=== PATIENT | male | born 1970 | race Caucasian/White ===

== ENCOUNTER 2020-09-14 12:04 | Outpatient (REF) | payer OTHER, SELFPAY ==
[2020-09-14 13:25] LABS: C Reactive Protein 0.12 mg/dL (< or = 0.50); Rheumatoid Factor < 15.0 IU/mL (<15.0)
[2020-09-14 14:08] LABS: Erythrocyte Sedimentation Rate 8 MM/HR (0-15)
[2020-09-15 19:22] LABS: Anti Nuclear Antibody Screen NEGATIVE (NEGATIVE)
== END 2020-09-14 12:05 | disposition home or self-care (01) ==
LOC: HO.MANLDS 12:04
PROVIDERS: PCP Internal Medicine; Visit Provider Physician Assistant
DX: R21 Rash and other nonspecific skin eruption (principal)
CPT/HCPCS: 36415; 85652; 86038; 86039; 86140; 86431

== ENCOUNTER 2021-01-24 06:00 | Outpatient (REF) | payer OTHER, SELFPAY ==
[2021-01-24 08:06] LABS: Estimated Average Glucose 108 mg/dL; Hemoglobin A1c % 5.4 %
[2021-01-24 08:11] LABS: Alanine Aminotransferase 24 U/L (0-40); Albumin Level 4.6 g/dL (3.5-5.0); Alkaline Phosphatase 67 U/L (39-117); Anion Gap 14 (12-20); Aspartate Amino Transferase 27 U/L (5-37); Bilirubin Total 1.1 mg/dL (0.0-1.0); Blood Urea Nitrogen 20 mg/dL (9-16); Calcium 9.5 mg/dL (8.4-10.2); Carbon Dioxide 25 mmol/L (22-29); Chloride 102 mmol/L (96-108); Cholesterol 279 mg/dL; Estimated Glomerular Filt Rate > 60; Glucose Random 97 mg/dL (60-115); HDL Cholesterol 77 mg/dL; LDL Cholesterol Calculated 178 mg/dl; Potassium 4.7 mmol/L (3.3-5.1); Sodium 136 mmol/L (135-145); Total Protein 7.6 g/dL (6.5-8.0); Triglycerides 124 mg/dL
== END 2021-01-24 06:01 | disposition home or self-care (01) ==
LOC: HO.LAB 06:00
PROVIDERS: PCP Internal Medicine; Visit Provider Internal Medicine
DX: E87.5 Hyperkalemia (principal); R73.01 Impaired fasting glucose
CPT/HCPCS: 36415; 80053; 80061; 83036

== ENCOUNTER 2021-03-01 14:48 | Outpatient (REF) | payer OTHER, SELFPAY ==
--- NOTE | ~2021-03-01 | MM_ITS ---
EXAMINATION: BONE DENSITOMETRY CLINICAL INDICATION: Disorders of bone density and structure. COMPARISON: This is the patient's baseline examination. TECHNIQUE: Using a Gigabit Squared DXA System (software version: 13.1) manufactured by [employer], dual-energy x-ray absorptiometry was performed of the lumbar spine and left hip. The images are of good technical quality. Summary results are attached. FINDINGS: AP SPINE L1-L4 (excluding L3): The data of L1-L4 has been changed to exclude the L3 vertebral body, because degenerative changes at this level may cause overestimation of lumbar spine density. BMD 1.084 g/cm2, Z-score -1.2, T-score -1.1, osteopenia. LEFT FEMUR, NECK: BMD 1.034 g/cm2, Z-score 0.1, T-score -0.3, normal. LEFT FEMUR, TOTAL: BMD 1.078 g/cm2, Z-score 0.0, T-score -0.2, normal. IDENTIFIED RISK FACTORS: History of fracture (adult). HISTORY OF FRACTURE: Ribs. MEDICATIONS: None listed. MM/XR DEXA axial skeleton IMPRESSION: 1. DIAGNOSIS: Osteopenia based on the lowest T-score value of -1.1 in the lumbar spine applying World Health Organization criteria. 2. 10-YEAR FRACTURE RISK PREDICTION, FRAX: Major osteoporotic fracture (clinical spine, forearm, hip or shoulder) 6.5%. Hip fracture 0.2%. 3. Treatment Recommendations: NOF guidelines recommend consideration for treatment in postmenopausal women and men age 50 and older presenting with the following: -A hip or vertebral (clinical or morphometric) fracture. -T-score less than or equal to -2.5 at the femoral neck or spine after appropriate evaluation to exclude secondary causes. -Low bone mass at the hip or spine and a 10-year fracture probability by FRAX of greater than or equal to 3% for hip fracture or greater than or equal to 20% for major osteoporotic fracture based on the [place] adapted WHO algorithm. 4. Other Recommendations: All treatment decisions require clinical judgment and consideration of individual patient factors, including patient preferences, comorbidities, previous drug use, risk factors not captured in the FRAX model (e.g. frailty, falls, vitamin D deficiency, increased bone turnover, interval significant decline in bone density) and possible under or overestimation of fracture risk by FRAX. Additional medical evaluation for secondary cause of low bone mineral density may be appropriate. FUTURE SCAN RECOMMENDATION: People with diagnosed cases of osteoporosis or at high risk for fracture should have regular bone mineral density tests. For patients eligible for Medicare, routine testing is allowed once every 2 years. The testing frequency can be increased to one year for patients who have rapidly progressing disease, those who are receiving or discontinuing medical therapy to restore bone mass, or have additional risk factors.
== END 2021-03-01 14:49 | disposition home or self-care (01) ==
LOC: HO.MAMMO 14:48
PROVIDERS: PCP Internal Medicine; Visit Provider Internal Medicine
DX: Z13.820 Encounter for screening for osteoporosis (principal); M85.80 Other specified disorders of bone density and structure, unspecified site
CPT/HCPCS: 77080

== ENCOUNTER 2025-06-13 10:17 | Outpatient (REF) | payer OTHER, SELFPAY ==
--- OUTSIDE RECORDS SUMMARY | 2020-03-06 07:22 | XMS_ITS | Encounter Summary ---
Author Organization [facility] Address [address] [place] [address] Phone Care Team Providers Care Dining Room Coordinator Name Role Phone Alberto Alford DO Primary Care Provider [phone] Encounter Details Date Type Department Care Team (Late st Contact Info) Description 03/06/2020 8:22 AM EDT Hospital Encounter [facility] [address] [place] [address] Seema Franklin CNP [address] [place] [address] Social History Tobacco Use Types Packs/Day Years Used Date Smoking Tobacco: Former Cigarettes 1989 Smokeless Tobacco: Never Comments:few cigs socially Alcohol Use Standard Drinks/Week Comments Not Currently 14 (1 standard drink = 0.6 oz pu re alcohol) 2 per day Education Answer Date Recorded Are you interested in more education? Not on elida e 10/24/2022 Are you concerned about learning? Not on file 10/24/2022 No 10/24/2022 No 10/24/2022 Digital Access Answer Date Recorded No 11/22/2022 No 11/22/2022 Reliable internet access at home? Not on file 11/22/2022 Device with a working camera? Not on file Intimate Partner Violence Answer Date R ecorded Denied Basic Needs Not on file 01/16/2023 In the past 12 months have y ou been in a relationship with a person who hurts, threatens, or tries to control you? No 01/16/2023 Worried food would run out Not on file 01/16 In the past 12 months have y ou been in a relationship with a person who hurts, threatens, or tries to control you? No 01/16/2023 Sex and Gender Information Value Date Recorded Sex Assigned at Male 03/24/2021 2:56 AM EDT Legal Sex Male 9:37 PM EDT Gender Identity Male 03/24/2021 2:56 AM EDT Sexual Orientation Not on file documented as of this encounter Functional Status * Calculated C-SSRS Risk Score (Lifetime/Recent) Answer Date of Assessment Author No Risk Indicated 03/24/2021 2:56 AM EDT Sera Hamm RN * [place] Suicide Severity Rating Scale (Screener/Recent Self-Report) Question Answer Date of Assessment Author 1. Wish to be (Past 1 Month) No 03/24/2021 2:56 AM EDT Sera Hamm RN 2. Non-Specific Active Suicidal Thoughts (Past 1 Month) No 03/24/2021 2:56 AM EDT Sera Hamm RN 6. Suicidal Behavior (Lifetime) No 03/24/2021 2:56 AM EDT Sera Hamm RN documented as of this encounter Plan of Treatment Upcoming Encounters Date Type Department Care Team (Late st Contact Info) Description 10/16/2025 1:00 PM EDT Office Visit [facility] [address] [place] [address] 3rd Floor, [address] [place] [address] Ever Coffey MD [address] [place] [address] [email or web address] documented as of this encounter Procedures Procedure Name Priority Date/Time Associated Diagnosis Comments XR RIBS 2 VIEWS (RIGHT) Urgent/patient waiting 03/06/2020 8:28 AM EDT Fall on board fishing boat, initial encounter documented in this encounter Results * XR RIBS 2 VIEWS (RIGHT) (03/06/2020 8:28 AM EDT) Anatomical Region Laterality Modality Chest Radiographic Kacie ging 03/06/2020 8:35 AM EDT Impressions 03/06/2020 8:39 AM EDT No rib fractures visualized. POS - [id number] Narrative 03/06/2020 8:39 AM EDT HISTORY: Lower anterior rib pain after fall. COMPARISON: None. VIEWS: 4 views. FINDINGS: No fractures visualized. No evidence of suspicious lytic or blastic lesions within the bones. Procedure Note Addi Archuleta MD - 03/06/2020 HISTORY: Lower anterior rib pain after fall. COMPARISON: None. VIEWS: 4 views. FINDINGS: No fractures visualized. No evidence of suspicious lytic or blasticlesions within the bones. IMPRESSION: No rib fractures visualized. POS - [id number] us Seema Franklin BANDER AND CELLOPHANER MACHINE HELPER IMG XR CHEST Final Resul t documented in this encounter Visit Diagnoses Not on filedocumented in this encounter Additional Health Concerns Infection Onset Date Last Indicated Resolved Time CoV-Risk 02/19/2021 02/19/2021 03/01/2021 1:22 AM EDT CoV-Risk Comment:Per note documentation 03/24/2021 03/24/2021 8:05 AM EDT documented as of this encounter Care Teams Dining Room Coordinator Relationship Specialty Start Date End Date Alberto Alford DO [email or web address] PCP - General Internal Medicine 03/06/20 02/02/25 documented as of this encounter Additional Source Comments The information contained in this document represents components of the legal health record. It is not the complete legal health record.[facility]
--- OUTSIDE RECORDS SUMMARY | 2020-12-31 07:21 | XMS_ITS | Encounter Summary ---
Author Organization [facility] Address [address] [place] [address] Drive [address] [place] [address] Phone Care Team Providers Care Saturator Operator Name Role Phone Alberto Alford Primary Care Provider [phone] Encounter Details Date Type Department Care Team (Late st Contact Info) Description 12/31/2020 8:21 AM EDT Hospital Encounter [facility] [address] [place] [address] Candice Field FNP [address] [place] [address] [email or web address] Social History Tobacco Use Types Packs/Day Years [...] 2:56 AM EDT Sera Hamm RN * [place] Suicide Severity Rating Scale (Screener/Recent Self-Report) Question [...] Description 10/16/2025 1:00 PM EDT Office Visit [facility] [address] [place] [address], [address] [place] [address] Ever Coffey MD [address] [place] [address] [email or web address] documented as of this encounter Procedures Procedure Name Priority Date/Time Associated Diagnosis Comments XR LUMBOSACRAL SPINE 2-3 VIEWS Urgent/patient waiting 12/31/2020 8:26 AM EDT Fall, initial encounter documented in this encounter Results * XR LUMBOSACRAL SPINE 2-3 VIEWS (12/31/2020 8:26 AM EDT) Anatomical Region Laterality Modality L-spine Computed Radiogr aphy 12/31/2020 8:34 AM EDT Impressions 12/31/2020 8:38 AM EDT Osteopenia. No acute fracture or misalignment. Narrative 12/31/2020 8:38 AM EDT XR LUMBOSACRAL SPINE 2-3 VIEWS COMPARISON: None FINDINGS: Diffuse bony osteopenia. Normal alignment. Minimal endplate spurring at L3-L5. No acute fracture. Vertebral body heights appear intact apart from perhaps minimal chronic appearing superior endplate compression at L2 and L3. Imaged regions of the pelvis and sacrum are unremarkable. Imaged bowel gas pattern is normal. Imaged lung bases are clear. Procedure Note Octavio Muñoz MD, MPH - 12/31/2020 XR LUMBOSACRAL SPINE 2-3 VIEWS COMPARISON: None FINDINGS: Diffuse bony osteopenia. Normal alignment. Minimal endplate spurring atL3-L5. No acute fracture. Vertebral body heights appear intact apart fromperhaps minimal chronic appearing superior endplate compression at L2 andL3. Imaged regions of the pelvis and sacrum are unremarkable. Imaged bowelgas pattern is normal. Imaged lung bases are clear. IMPRESSION: Osteopenia. No acute fracture or misalignment. Candice Field LACQUER POLISHER IMG XR SPINE Final Resul t documented in this encounter Visit Diagnoses Not on filedocumented in this encounter Additional Health Concerns Infection Onset Date Last Indicated Resolved Time CoV-Risk 02/19/2021 02/19/2021 03/01/2021 1:22 AM EDT CoV-Risk Comment:Per note documentation 03/24/2021 03/24/2021 8:05 AM EDT documented as of this encounter Care Teams Saturator Operator Relationship Specialty Start Date End Date Alberto Alford DO [email or web address] PCP - General Internal Medicine 9/8/20 8/7/25 documented as of this encounter Additional Source Comments The information contained in this document represents components of the legal health record. It is not the complete legal health record.[facility]
--- OUTSIDE RECORDS SUMMARY | 2025-02-03 08:10 | XMS_ITS | Encounter Summary ---
Author Organization [facility] Address [address] [place] [address] Drive [address] [place] [address] Phone Care Team Providers Care Residential Real Estate Sales Manager Name Role Phone Alberto Alford Primary Care Provider [phone] Encounter Details Date Type Department Care Team (Late st Contact Info) Description 02/03/2025 9:10 AM EDT Hospital Encounter [facility] [address] [place] [address] Seema Franklin CNP [address] [place] [address] [email or web address] Social History Tobacco Use Types Packs/Day Years [...] on file documented as of this encounter Plan of Treatment Upcoming Encounters Date Type Department Care Team (Late st Contact Info) Description 10/16/2025 1:00 PM EDT Office Visit [facility] [address] [place] [address] 3rd Floor, [address] [place], [place] [phone] Ever Coffey MD [address] [place] [address], [address] [place] [address] [email or web address] documented as of this encounter Procedures Procedure Name Priority Date/Time Associated Diagnosis Comments XR ANKLE 3 OR MORE VIEWS (LEFT) Urgent/patient waiting 02/03/2025 9:23 AM EDT Acute left ankle pain documented in this encounter Results * XR ANKLE 3 OR MORE VIEWS (LEFT) (02/03/2025 9:23 AM EDT) Anatomical Region Laterality Modality Ankle Left Computed Radiogr aphy 02/03/2025 9:39 AM EDT Impressions 02/03/2025 9:39 AM EDT No fracture or dislocation. Narrative 02/03/2025 9:39 AM EDT XR FOOT 3 OR MORE VIEWS (LEFT), XR ANKLE 3 OR MORE VIEWS (LEFT) Referring clinician's provided indication for this examination in Epic: Pain; History of plantars fasciitis with swelling at the heel and medial ankle COMPARISON: None. FINDINGS: Foot and ankle: No fracture. Normal alignment. Symmetric ankle mortise. Inferior calcaneal spur. Normal joint spaces. No soft tissue swelling or ankle effusion. Achilles tendon enthesophyte. Procedure Note Antonina Soto MD - 02/03/2025 XR FOOT 3 OR MORE VIEWS (LEFT), XR ANKLE 3 OR MORE VIEWS (LEFT) Referring clinician's provided indication for this examination in Epic:Pain; History of plantars fasciitis with swelling at the heel and medialankle COMPARISON: None. FINDINGS: Foot and ankle: No fracture. Normal alignment. Symmetric ankle mortise.Inferior calcaneal spur. Normal joint spaces. No soft tissue swelling orankle effusion. Achilles tendon enthesophyte. IMPRESSION: No fracture or dislocation. Seema Franklin [employer]GERS AND ACQUISITIONS ASSOCIATE IMG XR LOWER EXTREMITY Arely l Result documented in this encounter Visit Diagnoses Not on filedocumented in this encounter Care Teams Residential Real Estate Sales Manager Relationship Specialty Start Date End Date Alberto Alford DO [address] [place] [address] PCP - General Internal Medicine 02/03/25 documented as of this encounter Additional Source Comments The information contained in this document represents components of the legal health record. It is not the complete legal health record.[facility]
--- OUTSIDE RECORDS SUMMARY | 2025-02-03 08:12 | XMS_ITS | Encounter Summary ---
Author Organization [facility] Address [address] [place] [address] Drive [address] [place] [address] Phone Care Team Providers Care Resource Center Teacher Name Role Phone Alberto Alford Primary Care Provider Encounter Details Date Type Department Care Team (Late st Contact Info) Description 02/03/2025 9:12 AM EDT Hospital Encounter [facility] [address] [place] [address] Seema Franklin CNP [address] [place] [address] [email or web address] Social History Tobacco Use Types Packs/Day Years [...] Description 10/16/2025 1:00 PM EDT Office Visit [facility] [address] [place] [address] 3rd Floor, [address] [place], [place] [phone] Ever Coffey MD [address] [place] [address], [address] [place] [address] [email or web address] documented as of this encounter Procedures Procedure Name Priority Date/Time Associated Diagnosis Comments XR FOOT 3 OR MORE VIEWS (LEFT) Urgent/patient waiting 02/03/2025 9:23 AM EDT Acute left ankle pain documented in this encounter Results * XR FOOT 3 OR MORE VIEWS (LEFT) (02/03/2025 9:23 AM EDT) Anatomical Region Laterality Modality Foot Left Computed Radiogr aphy 02/03/2025 9:39 AM [...] IMPRESSION: No fracture or dislocation. Seema Franklin TURNTABLE OPERATOR IMG XR LOWER EXTREMITY Arely l Result documented in this encounter Visit Diagnoses Not on filedocumented in this encounter Care Teams Resource Center Teacher Relationship Specialty Start Date End Date Alberto Alford DO [address] [place] [address] PCP - General Internal Medicine 02/03/25 documented as of this encounter Additional Source Comments The information contained in this document represents components of the legal health record. It is not the complete legal health record.[facility]
--- OUTSIDE RECORDS SUMMARY | 2025-06-13 12:50 | XMS_ITS | Encounter Summary ---
Author Organization [facility] Address [address] [place] [address] Phone Care Team Providers Care Video Game Tester Name Role Phone Alberto Alford DO Primary Care Provider [phone] Alberto Alford DO Primary Care Provider [phone] Encounter Details Date Type Department Care Team (Late st Contact Info) Description 03/24/2021 Procedure [facility] [address] [place] [address] Social History Tobacco Use Types Packs/Day Years Used Date Smoking Tobacco: Former Smokeless Tobacco: Never Alcohol Use Standard Drinks/Week Comments Yes 0 (1 standard drink = 0.6 oz pur e alcohol) Sex and Gender Information Value Date Recorded Sex Assigned at Male 03/24/2021 2:56 AM EDT Legal Sex Male 9:37 PM EDT Gender Identity Male 03/24/2021 2:56 AM EDT Sexual Orientation Not on file documented as of this encounter Functional Status * Calculated C-SSRS Risk Score (Lifetime/Recent) Answer Date of Assessment Author No Risk Indicated 03/24/2021 2:56 AM EDT Sera Hamm RN * [place] Suicide Severity Rating Scale (Screener/Recent Self-Report) Question Answer Date of Assessment Author 1. Wish to be (Past 1 Month) No 03/24/2021 2:56 AM EDT Sera Hamm, CONSTANTIN 2. Non-Specific Active Suicidal Thoughts (Past 1 Month) No 03/24/2021 2:56 AM EDT Sera Hamm, CONSTANTIN 6. Suicidal Behavior (Lifetime) No 03/24/2021 2:56 AM EDT Sera Hamm RN documented as of this encounter Plan of Treatment Upcoming Encounters Date Type Department Care Team (Late st Contact Info) Description 10/16/2025 1:00 PM EDT Office Visit [facility] [address] [place] [address] 3rd Floor, [address] [place] [address] Ever Coffey MD [address] [facility] [address] [place] [address] [email or web address] documented as of this encounter Visit Diagnoses Not on filedocumented in this encounter Additional Health Concerns Infection Onset Date Last Indicated Resolved Time CoV-Risk Comment:Per note documentation 03/24/2021 03/24/2021 8:05 AM EDT documented as of this encounter Care Teams Video Game Tester Relationship Specialty Start Date End Date Alberto Alford DO PCP - General Internal Medicine 03/06/20 02/02/25 Alberto Alford DO [address] [facility] [place] [address] [place] [address] PCP - General Internal Medicine 02/03/25 documented as of this encounter Additional Source Comments The information contained in this document represents components of the legal health record. It is not the complete legal health record.[facility]
--- OUTSIDE RECORDS SUMMARY | 2025-06-13 12:50 | XMS_ITS | Encounter Summary ---
Author Organization [facility] Address [address] [facility] [address] [place] [address] Phone Care Team Providers Care Client Administrator Name Role Phone Rickeyyony Alberto Javed DO Primary Care Provider [phone] Alberto Alford DO Primary Care Provider [phone] Encounter Details Date Type Department Care Team (Late st Contact Info) Description 03/19/2021 Ancillary Orders Virtual Department [address] [place] [address] Alberto Alford DO [address] [facility] [place] [address] [place] [address] [email or web address] Pneumonitis; Pneumonia due to infectious organism, unspecified laterality, unspecified part of lung Social History Tobacco Use Types Packs/Day Years [...] Description 10/16/2025 1:00 PM EDT Office Visit [facility] [address] [place] [address] 3rd Floor, [address] [place] [address] Ever Coffey MD [address] [facility], [address] [place] [phone] ([email or web address]) [email or web address] documented as of this encounter Results * XR CHEST PA AND LATERAL 2 VIEWS (03/19/2021 1:03 PM EDT) Anatomical Region Laterality Modality Chest Computed Radiogr aphy 03/19/2021 1:10 PM EDT Impressions 03/19/2021 1:37 PM EDT 1. Evidence of chronic lung disease. 2. Cardiopericardial silhouette is borderline in size, suggestion of mild PVH. 3. Possible perihilar lung nodules that may be further evaluated by CT imaging. Findings were discussed with Dr. Alford on 03/19/21 at 1:40 pm; Narrative 03/19/2021 1:37 PM EDT XR CHEST PA AND LATERAL 2 VIEWS COMPARISON: None FINDINGS: Devices/Tubes/Lines: None. Lungs: The lungs are hyperexpanded with features of pulmonary emphysema. In left and right perihilar location, there is concern for lung nodules and this area may be further evaluated by CT imaging. Evaluation is somewhat limited in the absence of prior films. There is evidence of parenchymal scarring as well as mild PVH with findings suggesting presence of Sivakumar B-lines. The cardiopericardial silhouette is borderline in size. There is mild kyphosis of the upper thoracic spine. Procedure Note Malachi Rothman MD - 03/19/2021 XR CHEST PA AND LATERAL 2 VIEWS COMPARISON: None FINDINGS: Devices/Tubes/Lines: None. Lungs: The lungs are hyperexpanded with features of pulmonary emphysema.In left and right perihilar location, there is concern for lung nodulesand this area may be further evaluated by CT imaging. Evaluation issomewhat limited in the absence of prior films. There is evidence ofparenchymal scarring as well as mild PVH with findings suggesting presenceof Sivakumar B-lines. The cardiopericardial silhouette is borderline in size.There is mild kyphosis of the upper thoracic spine. IMPRESSION: 1. Evidence of chronic lung disease. 2. Cardiopericardial silhouette is borderline in size, suggestion of mildPVH. 3. Possible perihilar lung nodules that may be further evaluated by CTimaging. Findings were discussed with Dr. Alford on 03/19/21 at 1:40 pm; us Alberto Alford DO IMG XR CHEST Final Result documented in this encounter Visit Diagnoses Diagnosis Pneumonitis Pneumonia, organism unspecified Pneumonia due to infectious organism, unspecified laterality, unspecified part of lung Pneumonitis Pneumonia, organism unspecified Pneumonia due to infectious organism, unspecified laterality, unspecified part of lung documented in this encounter Additional Health Concerns Infection Onset Date Last Indicated Resolved Time CoV-Risk Comment:Per note documentation 03/24/2021 03/24/2021 8:05 AM EDT documented as of this encounter Care Teams Client Administrator Relationship Specialty Start Date End Date Albreto Alford DO PCP - General Internal Medicine 03/06/20 02/02/25 Alberto Alford DO [address] [place] [address] PCP - General Internal Medicine 02/03/25 documented as of this encounter Additional Source Comments The information contained in this document represents components of the legal health record. It is not the complete legal health record.[facility]
--- OUTSIDE RECORDS SUMMARY | 2025-06-13 12:50 | XMS_ITS | Encounter Summary ---
Author Organization [facility] Address [address] [facility] [address] [place] [address] Phone Care Team Providers Care Carpet Loom Fixer Name Role Phone Alberto Alford DO Primary Care Provider [phone] Alberto Alford DO Primary Care Provider [phone] Reason for Referral * Consultation (Elective) - Closed Specialty Diagnoses / Procedures Referred By Conteliseo t Referred To Contact Pulmonary Disease Diagnoses Edema, unspecified type Multiple nodules of lung Alberto Alford DO Phone: tel: fax: [email or web address] [address] [address] Phone: tel: Referral ID Status Reason Start Date Expiration Date Visits Re quested Visits Authorized [id number] Closed 03/20/2021 03/20/2022 1 1 Encounter Details Date Type Department Care Team (Latest Contact Info) Description 03/20/2021 Transcribe Orders [facility] [address] [place] [address] [address]rd Floor, [address] [place] [address] Dejon Ragland MD [address] [facility], [address] [place] [address] [email or web address] Multiple nodules of lung (Primary Dx); Edema, unspecified type Social History Tobacco Use Types Packs/Day Years [...] Description 10/16/2025 1:00 PM EDT Office Visit [facility] [address] [place] [address] [address]rd Floor, [address] [place] [address] Ever Coffey MD [address] [facility], [address] [place] [address] [email or web address] Scheduled Referrals Name Type Priority Associated Diagnoses Orde r Schedule Ambulatory referral to [facility] Pulmonology Outpatient Referral Routine Edema, unspecified type Multiple nodules of lung Ordered: 03/20/2021 documented as of this encounter Visit Diagnoses Diagnosis Multiple nodules of lung- Primary Edema, unspecified type documented in this encounter Additional Health Concerns Infection Onset Date Last Indicated Resolved Time CoV-Risk Comment:Per note documentation 03/24/2021 03/24/2021 8:05 AM EDT documented as of this encounter Care Teams Carpet Loom Fixer Relationship Specialty Start Date End Date Alberto Alford DO PCP - General Internal Medicine 03/06/20 02/02/25 Alberto Alford DO [address] [facility] [place] [address] [place] [address] PCP - General Internal Medicine 02/03/25 documented as of this encounter Additional Source Comments The information contained in this document represents components of the legal health record. It is not the complete legal health record.[facility]
--- OUTSIDE RECORDS SUMMARY | 2025-06-13 12:50 | XMS_ITS | Encounter Summary ---
Author Organization [facility] Address [address] [facility] [address] [place] [address] Phone Care Team Providers Care Hvac Controls Technician Name Role Phone Rickeyyony Alberto Javed DO Primary Care Provider [phone] Alberto Alford DO Primary Care Provider [phone] Encounter Details Date Type Department Care Team (Late Contact Info) Description 03/19/2021 Transcribe Orders Virtual Department [address] [place] [address] Alberto Alford DO [address] [facility] [place] [address] [place] [address] [email or web address] Other nonspecific abnormal finding of lung field (Primary Dx); Chronic pulmonary edema Social History Tobacco Use Types Packs/Day Years [...] Encounters Date Type Department Care Team (Late Contact Info) Description 10/16/2025 1:00 PM EDT Office Visit [facility] [address] [place] [address] [address]rd Floor, [address] [place] [address] Ever Coffey MD [address] [facility], [address] [place], [place] [id number] [email or web address] documented as of this encounter Visit Diagnoses Diagnosis Other nonspecific abnormal finding of lung field- Primary Chronic pulmonary edema Pulmonary congestion and hypostasis documented in this encounter Additional Health Concerns Infection Onset Date Last Indicated Resolved Time CoV-Risk Comment:Per note documentation 03/24/2021 03/24/2021 8:05 AM EDT documented as of this encounter Care Teams Hvac Controls Technician Relationship Specialty Start Date End Date Alberto Alford DO [email or web address] PCP - General Internal Medicine 03/06/20 02/02/25 Alberto Alford DO [address] [place] [address] PCP - General Internal Medicine 02/03/25 documented as of this encounter Additional Source Comments The information contained in this document represents components of the legal health record. It is not the complete legal health record.[facility]
--- OUTSIDE RECORDS SUMMARY | 2025-06-13 12:50 | XMS_ITS | Encounter Summary ---
Author Organization [facility] Address [address] [place] [address] Phone Care Team Providers Care Master Electrician Name Role Phone Alberto Alford DO Primary Care Provider [phone] RickeyAlberto [email or web address] DO Primary Care Provider [phone] Encounter Details Date Type Department Care Team (Late st Contact Info) Description 03/24/2021 Procedure Pass [facility], Ct Scan - [address] [address] Social History Tobacco Use Types Packs/Day Years [...] 2:56 AM EDT Sera Hamm RN * [place] Suicide Severity Rating Scale (Screener/Recent Self-Report) Question [...] Description 10/16/2025 1:00 PM EDT Office Visit [facility] [address] [place] [address] [address]rd Floor, [address] [place] [address] Ever Coffey MD [address] [facility], [address] [place] [address] [email or web address] documented as of this encounter Visit Diagnoses Not on filedocumented in this encounter Additional Health Concerns Infection Onset Date Last Indicated Resolved Time CoV-Risk Comment:Per note documentation 03/24/2021 03/24/2021 8:05 AM EDT documented as of this encounter Care Teams Master Electrician Relationship Specialty Start Date End Date Alberto Alford DO [email or web address] PCP - General Internal Medicine 03/06/20 02/02/25 Alberto Alford DO [address] [employer] [place] [address] PCP - General Internal Medicine 02/03/25 documented as of this encounter Additional Source Comments The information contained in this document represents components of the legal health record. It is not the complete legal health record.[facility]
--- OUTSIDE RECORDS SUMMARY | 2025-06-13 12:50 | XMS_ITS | Encounter Summary ---
Author Organization [facility] Address [address] [facility] [address] [place] [address] Phone Care Team Providers Care Animal Geneticist Name Role Phone RickeyAlberto [email or web address] Primary Care Provider [phone] Prashanth Alberto Javed DO Primary Care Provider [phone] Encounter Details Date Type Department Care Team (Late Contact Info) Description 03/19/2021 Transcribe Orders Virtual Department [address] [place] [address] Alberto Alford DO [address] [facility] [place] [address] [email or web address] Pneumonitis (Primary Dx) Social History Tobacco Use Types Packs/Day Years [...] Description 10/16/2025 1:00 PM EDT Office Visit [facility] [address] [place] [address] 3rd Floor, [address] [place] [address] Ever Coffey MD [address] [facility], [address] [place] [address] [email or web address] documented as of this encounter Visit Diagnoses Diagnosis Pneumonitis- Primary Pneumonia, organism unspecified documented in this encounter Additional Health Concerns Infection Onset Date Last Indicated Resolved Time CoV-Risk Comment:Per note documentation 03/24/2021 03/24/2021 8:05 AM EDT documented as of this encounter Care Teams Animal Geneticist Relationship Specialty Start Date End Date Alberto Alford DO [email or web address] PCP - General Internal Medicine 03/06/20 02/02/25 Alberto Alford DO [address] [place] [address] PCP - General Internal Medicine 02/03/25 documented as of this encounter Additional Source Comments The information contained in this document represents components of the legal health record. It is not the complete legal health record.[facility]
--- OUTSIDE RECORDS SUMMARY | 2025-06-13 12:50 | XMS_ITS | Clinical Summary ---
Author Organization [facility] Address [address] [facility] [address] [place] [phone] Phone Care Team Providers Care Lead Oracle Developer Name Role Phone Kimo Polanco DO Primary Care Provider [phone] Allergies Active Allergy Reactions Criticality Noted Date Comments Methylprednisolone Acetate Unknown 5 Depo-Medrol Medications aspirin 81 MG EC tablet Take 1 tablet (81 mg total) by mouth daily. 90 tablet 5 3 Active EPINEPHrine 0.3 mg/0.3 mL auto-injector Inject 0.3 mL (0.3 mg total) into the muscle as needed for anaphylaxis. 1 each 1 4 Active levocetirizine (XYZAL) 5 MG tablet Take 5 mg by mouth every evening. Active albuterol 90 mcg/actuation inhaler Inhale 2 puffs into the lungs every 4 (four) hours. Active alendronate (FOSAMAX) 70 MG tablet Take 70 mg by mouth once a week. Active fluticasone propionate (FLONASE) 50 mcg/actuation nasal spray SPRAY 2 SPRAYS EVERY DAY BY INTRANASAL ROUTE FOR 30 DAYS Active metoprolol tartrate (LOPRESSOR) 50 MG tablet Take 1 tablet (50 mg total) by mouth 2 (two) times a day. 180 tablet 3 5 Active rosuvastatin (CRESTOR) 20 MG tablet TAKE 1 TABLET BY MOUTH EVERY DAY 90 tablet 3 5 Active Active Problems Problem Noted Date Diagnosed Date Benign essential hypertension 04/10/2025 Assessment & Plan (04/10/2025 3:04 PM EDT): Blood pressure very elevated in the office today 180s over 100, slightly improved on repeat to 160s over 90 but still significantly elevated. Patient states is under immense stress of recent with work related issues and when he checks at home/at work or at outside offices they are regularly 120/70. Asked patient to check his home numbers over the next 1 month and let me know if they are consistently over 130/80. Continue metoprolol 50 mg twice daily at this time. Uptitrate or add additional antihypertensives should be elevated in the future. Lifestyle measures ongoing. Labs up-to-date. Coronary atherosclerosis of cachil dehe coronary delilah ry 09/30/2023 Assessment & Plan (04/10/2025 2:59 PM EDT): He did have a cardiac catheterization which showed mild nonflow limiting coronary disease. Continue on baby aspirin. Continue to optimize cardiovascular risk factors. Hyperlipidemia and hypertension as documented. Patient denies any symptoms concerning for angina or heart failure. Follow-up in 6 months Assessment & Plan (10/03/2024 1:35 PM EDT): He did have a cardiac catheterization which showed mild nonflow limiting coronary disease. Continue on baby aspirin. Continue to optimize cardiovascular risk factors. Hyperlipidemia and hypertension as below. Patient denies any symptoms concerning for angina or heart failure. Follow-up in 6 months Assessment & Plan (09/30/2023 2:38 PM EDT): He did have a cardiac catheterization which showed mild nonflow limiting coronary disease. Continue on baby aspirin. Continue to optimize cardiovascular risk factors. Hyperlipidemia as below Other hyperlipidemia 09/30/2023 Assessment & Plan (04/10/2025 3:02 PM EDT): Goal LDL less than 100 for this patient. Recent labs show LDL now at goal at 87, previously 203, after initiation of rosuvastatin 20 mg daily which he is tolerating well. LFTs with new slight elevation in AST 44 in the setting of increased alcohol use. We discussed in detail these findings and he seems agreeable to cut back his alcohol use. He is having his LFTs repeated in 2 months through his PCP office. Plan pending results. Assessment & Plan (10/03/2024 1:41 PM EDT): Goal LDL less than 100 for this patient. Recent labs show LDL now at goal at 87, previously 203, after initiation of rosuvastatin 20 mg daily at his last visit which he is tolerating well. LFTs unremarkable. Continue same Assessment & Plan (09/30/2023 2:40 PM EDT): Labs 09/29/2023 Total cholesterol 299 LDL 184 HDL 95 Triglycerides 100 Discussed lipid panel and recommended statin initiation. Patient states he has not been ever on any cholesterol-lowering medications. LFTs were normal. Patient states he would like to work on lifestyle modifications. We discussed diet, increasing exercise, reducing alcohol intake. 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 Heart failure 05/02/2022 Paroxysmal atrial fibrillation 06/04/2021 Assessment & Plan (04/10/2025 2:58 PM EDT): He has remained in sinus rhythm without known recurrence of atrial fibrillation. Eliquis was previously discontinued. He is taking a baby aspirin. He is on metoprolol 50 twice daily. Continue to monitor. Assessment & Plan (10/03/2024 1:32 PM EDT): He has remained in sinus rhythm without known recurrence of atrial fibrillation. Eliquis was previously discontinued. He is taking a baby aspirin. He is on metoprolol 50 twice daily. Continue to monitor. Assessment & Plan (08/06/2022 3:52 PM EST): He has a history of paroxysmal atrial fibrillation. Today, he is in sinus rhythm. He will continue metoprolol and Eliquis. Follow-up in 6 months. Cardiomyopathy 04/02/2021 Assessment & Plan (04/10/2025 2:59 PM EDT): Thought either tachycardia induced versus alcoholic cardiomyopathy. EF on repeat echo did normalize. Entresto was previously stopped. He has continued on metoprolol 50 p.o. twice daily. there has seemed to be no clinical recurrence of atrial fibrillation, discussed today alcohol use which is a few drinks daily and has been even more over the summer due to stress. Discussed importance of cutting back, patient states awareness of this. He did have a cardiac catheterization which showed mild nonflow limiting coronary disease. Patient is asymptomatic from a cardiovascular standpoint at this time. Continue to monitor this condition. Assessment & Plan (10/03/2024 1:34 PM EDT): Thought either tachycardia induced versus alcoholic cardiomyopathy. EF on repeat echo did normalize. Entresto was previously stopped. He has continued on metoprolol 50 p.o. twice daily. there has seemed to be no clinical recurrence of atrial fibrillation, discussed today alcohol use which is a few drinks daily. He did have a cardiac catheterization which showed mild nonflow limiting coronary disease. Patient is asymptomatic from a cardiovascular standpoint at this time. Work on reducing alcohol intake although patient is contemplative. Continue to monitor this condition. Assessment & Plan (09/30/2023 5:30 PM EDT): Thought either tachycardia induced versus alcoholic cardiomyopathy. EF on repeat echo did normalize. Entresto was previously stopped. He has continued on metoprolol 50 p.o. twice daily. there has seemed to be no clinical recurrence of atrial fibrillation, discussed today alcohol use which patient endorses drinking 4-5 alcoholic beverages a night. Patient seems contemplative. Patient is asymptomatic from a cardiovascular standpoint at this time. Work on reducing alcohol intake. Continue to monitor this condition. Assessment & Plan (08/06/2022 3:53 PM EST): He has a history of a cardiomyopathy. He did have a catheterization which showed nonflow limiting coronary artery disease. His most recent echocardiogram done last month showed a normal EF. For now, he will continue with Entresto and metoprolol. Follow-up 6 months. Assessment & Plan (05/13/2021 9:13 AM EST): Euvolemic on exam today. Denies concerning cardiac symptoms indicative of fluid overload. Patient will continue furosemide and spironolactone at same doses. Reviewed heart healthy diet and ways to mitigate urinary frequency with diuretic. Assessment & Plan (04/02/2021 1:54 PM EDT): Patient EF noted to be 25% on recent echocardiogram at [facility] 03/24/2021. He was started on low-dose Entresto, metoprolol 100 mg twice daily, Lasix 40 mg daily and spironolactone 25 mg daily. I ordered him a repeat BMP/BNP for him to obtain on the way out today as well as another BMP/BNP for him to obtain prior to his next 1 month follow-up to ensure kidney function/electrolytes remain stable on all of these new medications. Patient is tolerating these medications. We will order a stress test, patient states he will attempt to walk on the treadmill, to ensure no ischemic component. He has been having nonspecific left-sided back discomfort with certain activities/positions. Other etiologies for his cardiomyopathy include alcohol versus tachycardia related to his atrial fibrillation. Patient is currently abstaining from alcohol. We will obtain an echocardiogram in 3 months to reevaluate his EF and optimize his medical therapy with monthly visits in the interim. I have asked him to start checking his vitals at home and keep a BP/pulse log for review at his next follow-up as we will attempt to uptitrate one of his medications at that time. Patient states that Entresto was expensive. I requested he call his insurance company to see if they require a PA for this medication so we can establish a plan as to how to keep him on this if financially able for the next few months. We may be increasing this to medium dose at next follow-up, so I provided him 1 month of samples. Patient also states that he has not been able to make it through the workday and is extremely fatigued even on light duty. He is going to speak with HR at his company and let us know if he needs any further work note to be off of work for 4 to 6 weeks until he is able to return. Atrial fibrillation with rapid ventricular respo nse 03/24/2021 Assessment & Plan (09/30/2023 2:30 PM EDT): He has remained in sinus rhythm without known recurrence of atrial fibrillation. Eliquis was previously discontinued. He is taking a baby aspirin. He is on metoprolol 50 twice daily. Continue to monitor. Assessment & Plan (05/13/2021 9:11 AM EST): Rate controlled in office today. Continue metoprolol and Eliquis. Assessment & Plan (04/02/2021 1:51 PM EDT): Patient was found to be in new A. fib with RVR during recent hospitalization at [facility]. He was started on Eliquis 5 mg twice daily which I will continue at this time. [id number] score is 1 for CHF. Continue rate control with metoprolol 100 mg twice daily. Patient denies any clinical recurrence at this time to his knowledge. Continue to monitor. Assessment & Plan (03/24/2021 11:55 AM EDT): Patient seen by cardiology today. Echocardiogram done and showed EF 15%. Working on transitioning patient off Cardizem drip. He was started on metoprolol today Manager Appointment recommended Eliquis. Patient started on Lasix for CHFwhen he was admitted and this is continued Manager Appointment also recommended Entresto and started this Abnormal chest x-ray 03/24/2021 Assessment & Plan (03/24/2021 11:52 AM EDT): CT chest requested to further evaluate abnormalities on chest x-ray including? Adenopathy as well elevated D-dimer Addendum --chest CT unremarkable Daily consumption of alcohol 03/24/2021 Assessment & Plan (08/06/2022 3:53 PM EST): The patient continues to drink but less than he was previously. Sometimes, he goes a week or 2 without a drink. Assessment & Plan (04/02/2021 2:43 PM EDT): Patient states he has not drank alcohol since discharge from the hospital. He was drinking a few beers/day before hospitalization. Recommend ongoing cessation. Assessment & Plan (03/24/2021 11:50 AM EDT): . Monitor on CIWA scale. Score is low. No medications ordered so far Multiple nodules of lung 03/19/2021 Abnormal results of liver function studies 06/27 Assessment & Plan (04/10/2025 3:02 PM EDT): See above. Cerebrovascular accident 06/27/2020 Harmful use of alcohol 06/27/2020 Assessment & Plan (04/10/2025 3:02 PM EDT): See above. Impaired fasting glucose 06/27/2020 Migraine 06/27/2020 Overview (02/03/2025): childhood Encounters Date Type Department Care Team Description 04/10/2025 2:30 PM EDT Office Visit [facility] [address], [address] [place] [address] Eden Guzman PA-C Paroxysmal atrial fibrillation (Primary Dx); Dilated cardiomyopathy; Atherosclerosis of cachil dehe coronary artery of cachil dehe heart without angina pectoris; Other hyperlipidemia; Harmful use of alcohol; Abnormal results of liver function studies; Benign essential hypertension 04/04/2025 Refill [facility] [address], [address] [place] [address] Ever Coffey MD Medication Refill from Last 3 Months Immunizations Immunization Administration Dates Next Due COVID-19 (Pre-04/20) Pfizer Vaccine, mRNA, PF 08/14/2020,07/24/2020 Influenza Quadrivalent Prese rvative Free IM 06/10/2021,03/25/2021(Deferred: Patient Refused) Tdap 06/10/2021 Family History Medical History Relation Comments Lupus Brother Coronary artery disease Father Skin cancer Father Relation Status Comments Brother Alive Father Alive Mother Alive Social History Tobacco Use Types Packs/Day Years Used Date Smoking Tobacco: Former Cigarettes 1 987 - 1989 Smokeless Tobacco: Never Tobacco Cessation:Counseling Given: Not Answered Comments:few cigs socially Alcohol Use Standard Drinks/Week [...] AM EDT Sexual Orientation Not on file Last Filed Vital Signs Vital Sign Reading Time Taken Comments Blood Pressure 182/100 04/10/2025 2:31 PM EDT Pulse 78 04/10/2025 2:31 PM EDT Temperature 36.4 C (97.6 F) 02/03/2025 8:48 AM EDT Respiratory Rate 16 02/03/2025 8:48 AM EDT Oxygen Saturation 98% 04/10/2025 2:31 PM EDT Inhaled Oxygen Concentration - - Weight 73.5 kg (162 lb) 04/10/2025 2:31 PM EDT Height 188 cm (6' 2.02 ) 04/10/2025 2:31 PM EDT Body Mass Index 20.79 04/10/2025 2:31 PM EDT Plan of Treatment Upcoming Encounters Date Type Department Care Team (Late st Contact Info) Description 10/16/2025 1:00 PM EDT Office Visit [facility] [address] [place] [address] [address], [address] [place] [address] Ever Coffey MD [address] [facility], [address] [place] [address] [email or web address] Health Maintenance Due Date Last Done Comments DEPRESSION SCREENING 1980 HEPATITIS C SCREENING 01/30/1986 HIV ONE-TIME SCREENING (18-6 5 YEARS) 01/30/1986 COLOGUARD 01/30/2013 FIT TEST 01/30/2013 FOBT 01/30/2013 SIGMOIDOSCOPY 01/30/2013 VIRTUAL COLONOSCOPY 01/30/2013 PNEUMOCOCCAL VACCINES (50+ years) (1 of 1 - PCV) 01/30/2018 ZOSTER VACCINES (1 of 2) 01/30/2018 INFLUENZA VACCINE (#1) 2025 06/10/2021 COVID-19 VACCINE (3 - 2024-2 6 season) 2025 08/14/2020, 07/24/2020 BLOOD PRESSURE 10/09/2025 04/10/2025 SMOKING Hx and SMOKELESS TOBACCO SCREENING 04/10/2026 04/10/2025 COLONOSCOPY 01/16/2030 01/16/2023 COLORECTAL CANCER SCREENING 01/16/2030 Adult Td,Tdap Booster 06/10/2031 06/10/2021 RSV VACCINE (1 - 1-dose 75+ series) 01/30/2043 HEPATITIS A VACCINES Aged Out No long er eligible based on patient's age to complete this topic HIB VACCINES Aged Out No longer eligi ble based on patient's age to complete this topic MENINGOCOCCAL VACCINES (ACWY) Aged Out No longer eligible based on patient's age to complete this topic MENINGOCOCCAL VACCINES (B) Aged Out N o longer eligible based on patient's age to complete this topic Medical Devices Not on file Procedures Procedure Name Priority Date/Time Associated Diagnosis Comments ENDOSCOPY, COLON 01/16/2023 8:20 AM EDT from Last 3 Months or Most Recently Relevant to Health Maintenance Results * ENDOSCOPY, COLON (01/16/2023 8:20 AM EDT) Narrative Transcriptions Johnson Monique MD - 01/16/2023 8:20 AM EDT [facility] Patient Name: Vadim Reyes Attending MD:: JOHNSON MONIQUE MD, Procedure Date: 01/16/2023 8:20 AM Date of : 1970 Age: 52 Admit Type: Outpatient Gender: Male Room: [place] [address] Referring MD: KIMO POLANCO DO Exam Type: Colonoscopy Indications: Screening for colorectal malignant neoplasm, Thisis the patient's first colonoscopy Medications: Monitored Anesthesia Care Procedure: Informed consent was obtained from the patientafter discussion of the indications, limitations, alternatives, benefits, and risks of the procedure. Risks specifically discussed include but are not limited to medication reactions, missed lesions, bleeding, perforation, or the need for emergent surgery. Throughout the procedure, the patient's blood pressure, pulse, end-tidal CO2, and oxygensaturations were monitored continuously. The Olympus adult variable colonoscope [id number] #2 was introduced through the anus and advanced to the terminal ileum, with identification of theappendiceal orifice and IC valve. The colonoscopy was performed without difficulty. The patient tolerated the procedure well. The quality of the bowelpreparation was excellent. The terminal ileum, ileocecal valve, appendiceal orifice, and rectum werephotographed. Complications: No immediate complications. Estimated blood loss:None. Findings: The terminal ileum appeared normal. Examination of the right colon was repeated in retroflexion and again in NBI. Retroflexion wasalso performed in the rectum. A 2 mm polyp was found in the ascending colon in retroflexion. The polyp was sessile. The polyp was removed with a cold biopsy forceps. Resection and retrieval were complete. A 4 mm polyp was found in the descending colon. The polyp was sessile. The polyp was removed with acold snare. Resection and retrieval were complete. The exam was otherwise without abnormality. Impression: - The examined portion of the ileum was normal. - One 2 mm polyp in the ascending colon, removedwith a cold biopsy forceps. Resected and retrieved. - One 4 mm polyp in the descending colon, removedwith a cold snare. Resected and retrieved. - The examination was otherwise normal. Recommendation: - Patient has a contact number available for emergencies. The signs and symptoms of potential delayed complications were discussed with thepatient. Return to normal activities tomorrow. Written discharge instructions were provided to thepatient. - Await pathology results. - Repeat colonoscopy for surveillance based on pathology results. Johnson Monique JOHNSON MONIQUE MD 01/16/2023 9:13:29 AM This report has been signed electronically. Number of Addenda: 0 Note Initiated On: 01/16/2023 8:20 AM Procedure Code(s): --- Professional --- 06346, Colonoscopy, flexible; with removal of tumor(s), polyp(s), or other lesion(s) by snare technique 79555, 59, Colonoscopy, flexible; with biopsy, single or multiple --- Technical --- 61239, Colonoscopy, flexible; with removal of tumor(s), polyp(s), or other lesion(s) by snare technique 85947, 59, Colonoscopy, flexible; with biopsy, single or multiple CPT copyright 2021 [employer]. All rights reserved. The codes documented in this report are preliminary and upon multineedle shirrer reviewmay be revised to meet current compliance requirements. Procedure Date: 01/16/2023 8:20:[address] [place] [id number] us Kimo Tegan Polanco DO GI PROCEDURE ORDERABLES Final Re sult from Last 3 Months or Most Recently Relevant to Health Maintenance Insurance [address] [place], [place] [id number] [facility] [address] [place] [place] [address] [place], [place] [id number] Member Subscriber Plan / Payer (Ef fective 2018-Present) Name:Vadim Reyes Relation to Subscriber:Self Name:Vadim Reyes Payer ID:Not on file Type:HMO Address: [place] [id number] [place], [place] [address]O [facility] Advance Directives For more information, please contact: [phone] (9AM - 5PM [facility], Thursday-Thursday) * Full Code (Latest Code Status on File) Date Activated Date Inactivated Comments 06/04/2021 9:45 AM Question Answer Comments Code Status Confirmed With: Patient * Full Code Date Activated Date Inactivated Comments 03/24/2021 5:55 AM 06/04/2021 9:45 AM Question Answer Comments Code Status Confirmed With: Patient Care Teams Lead Oracle Developer Relationship Specialty Start Date End Date Kimo Polanco DO [address] [place] [id number] PCP - General Internal Medicine 02/03/25 Additional Source Comments The information contained in this document represents components of the legal health record. It is not the complete legal health record.[facility]
--- OUTSIDE RECORDS SUMMARY | 2025-06-13 12:51 | XMS_ITS | Continuity of Care Document ---
Author Organization [facility] Address [address] [facility] [place] [address] [place] [address] Assessment No assessment recorded. Plan of Treatment Reminders Order Date Submit Date Provider Last Modified By Organization Details Last Modified Time Details Appointments ANNUAL EXAM 2024 10:00A M DR POLANCO Not available Not available Not available Lab CMP, serum or plasma 2024 025 [facility], [address] [place] [address], [id number], 06/13/2025 10:20:45 CBC w/ auto diff 2024 025 [facility], [address] [place] [address], [id number], 06/13/2025 10:20:44 testoste gee, total, serum 2024 025 [facility], [address] [place] [address], [id number], 06/13/2025 10:20:44 vitamin D, 25-hydro xy, total, serum 2024 025 [facility], [address] [place] [address], [id number], 06/13/2025 10:20:45 vitamin B12 + folate, serum or blood 2024 025 [facility], [address] [place] [address], [id number], 06/13/2025 10:20:45 PSA, serum or plasma 2024 025 [facility], [address] [place] [address], [place], [id number], 06/13/2025 10:20:44 Referral None recorded . Procedures None recorded . Surgeries None recorded . Imaging None recorded . Medication Orders None recorded . Patient TargetsNo targets recorded. Patient InstructionsNo instructions recorded. Reason for Referral None Reported. 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 0 10:54:19 [place] ht 013439857 Completed 201905/17/2024 Alberto Polanco DO [address] [place] [address], [address], [facility] 4 10:42:14 Migraine 49076236 Active [address] [facility] 0 10:57:33 Cerebrov ascular accident 605435016 Completed 201907/02/2020 JANICE CHINO [address] [place], [address], [facility] 1 12:07:05 Multiple nodules of lung 308005137 Active 2020 Alberto Polanco DO [address] [place] [address], [address], [facility] 1 13:46:06 Pulmonar y edema 84558593 Active 2020 Alberto TeganWayne Polanco, DO [address] [place] [address], [address], [facility] 13:46:08 Plantar fasciiti s 386108198 Active 2024 JANICE CHINO [address] [place] [address], [phone], [facility] Internal [facility] 5 15:07:46 Problem Notes None recorded. Procedures Surgical History Date Name Laterality Status Provider Name and Address Organization Details Recorded Time insertion of arterial stent completed [facility] 06/27/2020 10:56:53 appendectomy completed [facility] 07/04/2020 15:07:56 Imaging Results None recorded. Procedure Notes None recorded. Medical Equipment None Reported. Allergies Allergen ID Allergen Name Allergen Category Reaction Reaction Severity Criticality Documentation Date Start Date Code Code System Note Provider Name and Address Organization Details Recorded Time 10988 methylpre dnisolone acetate medicatio n Not available Not available Not available 06/13/20252024 99204 3 RxNorm Depo- Medro sergio ortiz ed react ion (text : Unkno wn, code: 97221 5006) ([facility]) Not Available baker - External Data Service - prod 5 03:12:41 4857 Depo-Medr ol medicatio n Not available Not available Not available 03/19/2021 20752 RxNorm feel s like shit Alberto Polanco, DO [address] [place], [address], [facility] Internal [facility] 1 10:00:07 Medications Name Sig Start Date Stop Date Status Note LastModified by Organization Details LastModified Time cyclobenz aprine 10 mg tablet TAKE 1 TABLET (10 MG TOTAL) BY MOUTH 3 (THREE) TIMES A DAY NEEDED (MUSCLE) . 03/08 completed Not Available Not Available Not Available furosemid e 40 mg tablet TAKE 1 TABLET BY MOUTH EVERY DAY 06/13 completed Not Available Not Available Not Available azithromy yara 250 mg tablet TAKE 2 TABLETS (500 MG) BY ORAL ROUTE ONCE DAILY FOR 1 DAY THEN 1 TABLET (250 MG) BY ORAL ROUTE ONCE DAILY FOR 4 DAYS 04/17 completed Not Available Not Available Not Available metoprolo l tartrate 100 mg tablet Take 1 tablet twice a day by oral route for 30 days. 06/13 completed Not Available Not Available Not Available fluconazo le 150 mg tablet 09/14 completed Not Available Not Available Not Available meloxicam 15 mg tablet TAKE 1 TABLET BY MOUTH DAILY 06/13 completed Not Available Not Available Not Available prednison e 20 mg tablet 3 po QD X 5 days 06/13 completed Not Available Not Available Not Available alendrona te 70 mg tablet TAKE 1 TABLET BY MOUTH EVERY WEEK 06/13 completed Not Available Not Available Not Available spironola ctone 25 mg tablet TAKE 1 TABLET BY MOUTH EVERY DAY 06/13 completed Not Available Not Available Not Available hydrocort isone 2.5 % topical cream with perineal applicato r APPLY EXTERNAL LY TO THE AFFECTED AREA THREE TIMES DAILY FOR 7 DAYS 01/29 completed Not Available Not Available Not Available terbinafi ne HCl 250 mg tablet TAKE 1 TABLET BY MOUTH EVERY DAY FOR 14 DAYS 03/08 completed Not Available Not Available Not Available clotrimaz ole-betam ethasone 1 %-0.05 % topical cream APPLY TOPICALL Y TO THE AFFECTED AND SURROUND ING AREAS TWICE DAILY IN THE MORNING AND IN THE EVENING FOR 2 WEEKS 01/29 completed Not Available Not Available Not Available metoprolo l tartrate 50 mg tablet one tab twice daily active managed by cardiolo gy Not Available Not Available Not Available betametha sone dipropion ate 0.05 % topical cream 01/29 completed Not Available Not Available Not Available aspirin 81 mg tablet Take 1 tablet every day by oral route. active Not Available Not Available No t Available epinephri ne 0.3 mg/0.3 mL injection , auto-inje ctor USE DIRECTED FOR ANAPHYLA XIS THEN CALL 911 active Not Available Not Available No t Available levofloxa yara 500 mg tablet TAKE 1 TABLET BY MOUTH EVERY 24 HOURS FOR 7 DAYS 04/17 completed Not Available Not Available Not Available methylpre dnisolone 4 mg tablets in a dose pack FOLLOW PACKAGE DIRECTIO NS 04/17 completed Not Available Not Available Not Available albuterol sulfate HFA 90 mcg/actua tion aerosol inhaler INHALE 2 PUFFS BY MOUTH EVERY 4 HOURS 06/13 completed Not Available Not Available Not Available fluticaso ne propionat e 50 mcg/actua tion nasal spray,beto pension SPRAY 2 SPRAYS EVERY DAY BY INTRANAS AL ROUTE FOR 30 DAYS 06/13 completed Not Available Not Available Not Available clotrimaz ole 1 % topical cream 09/14 completed Not Available Not Available Not Available naproxen 500 mg tablet TAKE 1 TAB BY MOUTH 2 TIMES A DAY FOR 3 DAYS. THEN TWICE DAILY NEEDED FOR PAIN, INFLAMMA TION 03/08 completed Not Available Not Available Not Available Asprin Ec Low Dose 81 mg tablet,de layed release Take 1 tablet every day by oral route. 03/08 completed Not Available Not Available Not Available cyclobenz aprine 5 mg tablet TAKE 1 TABLET BY MOUTH THREE TIMES DAILY NEEDED active Not Available Not Available No t Available rosuvasta tin 20 mg tablet TAKE 1 TABLET BY MOUTH EVERY DAY active Not Available Not Available No t Available Nexium 06/13 completed Not Available Not Available Not Available Xyzal 5 mg tablet Take 1 tablet every day by oral route. active Not Available Not Available No t Available Eliquis 5 mg tablet Take 1 tablet twice a day by oral route for 30 days. 06/13 completed Not Available Not Available Not Available Entresto 49 mg-51 mg tablet 06/13 completed Not Available Not Available Not Available Entresto 24 mg-26 mg tablet TAKE 1 TABLET BY MOUTH TWICE DAILY 06/13 completed filled by cardiolo gy Not Available Not Available Not Available Afluria Quad 60 mcg (15 mcg x 4)/0.5 mL intramusc ular susp. 08/03 completed Not Available Not Available Not Available Pfizer-Bi oNTech COVID-19 Vaccine (PF) 30 mcg/0.3 mL IM susp (purple) PHARMACY ADMINIST ERED 08/03 completed Not Available Not Available Not Available Vitals Date Recorded Body height Body mass index (BMI) Body weight Heart rate Oxygen saturation Systolic And Diastolic Provider Name and Address Organization Details Last Updated DateTime 5 182.88 cm 29.3 kg/m2 50623.3 9 g 70 /min 97 % 152/88 mm[Hg] Senia Jara [facility] Internal [facility] 5 09:50:00 Social History Question Answer Notes LastModified by [employer] Details LastModified Time Tobacco Smoking Status Former Smoker 1/3 pack per day quit 1989 Radha barroso [facility] 07/04/2020 14:39:42 What Is Your Level Of Caffeine Consumption? Occasional Information not available 07/04/2020 Which Illicit Or Recreational Drugs Have You Used? Marijuana Information not available 07/04/2020 What Was The Date Of Your Most Recent Tobacco Screening? 06/13/2025 [email or web address] Information not available 06/13/2025 Sex: Male Functional Status Question Answer Note LastModified by [employer] Details LastModified Time What is your level of alcohol consumption? Heavy 21 per week Information not available 07/04/2020 What is your exercise level? Moderate Information not available 07/04/2020 Mental Status None recorded. Family History Relationship Description Onset Age of this Age Resolved Age Notes LastModified by Organization Details LastModified Time Paternal Grandfather Heart disease [email or web address] Not available 2020 14:41:34 Maternal Grandfather Heart disease sbucko Not available 2020 14:41:34 Paternal Grandmother Alcoholism sbucko Not available 11/2020 14:42:03 Medical History No medical history recorded. Immunizations Vaccine Type Date Status Note Provider Nam e and Address Organization Details Recorded Time COVID-19, mRNA, LNP-S, PF, 30 mcg/0.3 mL dose 1 completed Deborah barroso [facility] 01/28/2021 11:58:53 Tdap 1 completed Olivia barroso [facility] 11/06/2021 14:20:16 Influenza, split virus, quadrivalent, preservative 1 completed Olivia barroso [facility] 11/06/2021 14:20:56 COVID-19, mRNA, LNP-S, PF, 30 mcg/0.3 mL dose 2 completed Olivia Diaz [facility] [place] 11/06/2021 14:21:29 Influenza, split virus, quadrivalent, preservative 0 completed Not Available [facility] 12/31/2020 09:11:01 COVID-19, mRNA, LNP-S, PF, 30 mcg/0.3 mL dose 1 completed Not Available [facility] 12/31/2020 09:11:01 Past Encounters Encounter ID Performer Location Encounter Start Date Encounter Closed Date Diagnosis/Indication Diagnosis SNOMED-CT Code Diagnosis ICD10 Code Diagnosis IMO Codes Diagnosis Note [id number] Alberto Polanco [facility] [address],[place] [address] 06/13/2025 09:44:14 06/13/2025 10:11:03 Active or passive immunization 869219088 Z23 seems to be utd Depression screening 171 310266 Z13.31 neg Hyperlipidemia 98952781 E78.5 rechk lab at next draw Well adult 995608767 Z00 .00 82789017 doing better and is feeling well his bp at home have been good told he needs to keep an eye on this as it is still too high here in office Health Concerns Section Related Observation LastModified by Organization Detai ls LastModified Time None Recorded Concern Status LastModified by Organization Details LastModified Time None Recorded Payers Encounter Date Sequence Insurance Name Policy Number Policy Martin Covered Member ID Martin Member ID Guarantor Name 06/13/[address] [place] [address] [id number] [facility] [id number] [facility] Notes Date Note Type Note Provider Name and Address Organization Details Recorded Time 06/13/20 25 text/htm l Annual WellnessReported by PatientSocial/Behavioral HistoryFor diet and nutrition, patient reportshealthy diet. For fracture risk, patient reportsno history of fractures,no recent explained fracture,no sudden unexplained fractures, andno previous musculoskeletal injuries. For physical activity, patient reportsexercises on a regular basis,recent increase in physical activity, andgood physical condition. For additional lifestyle factors, patient reportsno tobacco use,no alcohol intake, andstopped drinking alcohol.Mental Status:For depression risk, patient reportsnever feels sad, empty, or tearful,no loss of interest in activities,no significant changes in weight,no sleep disturbances or insomnia,no agitation,no loss of energy,no feelings of worthlessness or guilt,no thoughts of suicide,no history of depression, andno history of mood disorders.Functional AbilityFor hearing, patient reportsno loss of hearing. For vision, patient reportsno vision problems. Care Management - HyperlipidemiaReported by PatientHPIFor control, patient reportsusually well controlled,improving, andat goal. For complications, patient reportsno coronary artery disease,no heart attack,no cardiovascular disease,no pancreatitis, andno stroke.ROS as noted in the HPI here for rech and is doing Alberto Polanco, [address] [facility], [place], [address], [facility] 06/13/2025 10:16:55
--- OUTSIDE RECORDS SUMMARY | 2025-06-13 12:51 | XMS_ITS | Continuity of Care Document ---
Author Organization [facility] Address [address] [place] [address] [place] [address] Assessment No assessment recorded. Plan of Treatment Reminders Order Date Submit Date Provider Last Modified By Organization Details Last Modified Time Details Appointments ANNUAL EXAM 2024 10:00A M DR POLANCO Not available Not available Not available Lab None recorded. Referral podiatris t referral 2024 025 raulito Wright DP, [address] [place] [address], [id number], 03/21/2025 08:37:52 Procedures None recorded. Surgeries None recorded. Imaging None recorded. Medication Orders None recorded. Patient TargetsNo targets recorded. Patient InstructionsNo instructions recorded. Reason for Referral Dental Technician Referral for Plan tar fasciitis L foot pain, plantar fasicitis and calcaneal Referring Physician: Noy Villeda, Internal Medicine, Encounter Date: 03/20/2025 Problems Name Problem SNOMED Code Status Onset Date Resolution Date Notes Provider Name and Address Organization Details Recorded Time Liver function tests outside referenc e range 745144473 Active 2019 Radha barroso [facility] 0 10:53:42 Hyperlip idemia 40626349 Active 2019 Radha barroso [facility] 0 10:53:56 Impaired fasting glycemia 783966402 Active 2019 Radha barroso [facility] 0 10:54:06 Harmful pattern of use of alcohol 38079462 Active 2019 Radha barroso [facility] 0 10:54:19 [place] ht 187594994 Completed 201905/17/2024 Alberto Polanco, [address] [place] [address], [address], [facility] 4 10:42:14 Migraine 22475942 Active 2019 childhoo d Radha Perera [facility] 0 10:57:33 Cerebrov ascular accident 145050148 Completed 201907/02/2020 JANICE CHINO [address] [place] [address], [address], [facility] Internal [facility] 1 12:07:05 Multiple nodules of lung 544695959 Active 2020 Alberto Polanco DO [address] [place] [address], [address], [facility] 1 13:46:06 Pulmonar y edema 61859396 Active 2020 Alberto Polanco DO [address] [place] [address], [address], [facility] 1 13:46:08 Plantar fasciiti s 026723555 Active 2024 JANICE CHINO [address] [place] [address], [address], [facility] 5 15:07:46 Problem Notes None recorded. Procedures Surgical History Date Name Laterality Status Provider Name and Address Organization Details Recorded Time insertion of arterial stent completed Radhaphyllis Perera [facility] 06/27/2020 10:56:53 appendectomy completed Radhaphyllis Preera [facility] 07/04/2020 15:07:56 Imaging Results None recorded. Procedure Notes None recorded. Medical Equipment None Reported. Allergies Allergen ID Allergen Name Allergen Category Reaction Reaction Severity Criticality Documentation Date Start Date Code Code System Note Provider Name and Address Organization Details Recorded Time 48737 methylpre dnisolone acetate medicatio n Not available Not available Not available 06/13/20252024 59133 3 RxNorm Depo- Medro l unrec ogniz ed react ion (text : Unkno wn, code: 93057 5006) (from [facility]) Not Available fabiola - External Data Service - prod 5 03:12:41 4857 Depo-Medr ol medicatio n Not available Not available Not available 03/19/2021 27953 RxNorm feel s like shit Alberto Polanco, DO [address] [place], [address] 10:00:07 Medications Name Sig Start Date Stop [...] completed Not Available Not Available Not Available Pfizer-[facility] COVID-19 Vaccine (PF) 30 mcg/0.3 mL IM susp (purple) PHARMACY ADMINIST ERED 08/03 completed Not Available Not Available Not Available Vitals Date Recorded Body height Body mass index (BMI) Body weight Heart rate Oxygen saturation Systolic And Diastolic Provider Name and Address Organization Details Last Updated DateTime 5 182.88 cm 27.1 kg/m2 54788.4 7 g 98 /min 98 % 120/70 mm[Hg] [facility] 14:55:32 Social History Question Answer Notes LastModified by [employer] Details LastModified Time Tobacco Smoking Status Former Smoker 1/3 pack per day quit 1989 [facility] 07/04/2020 14:39:42 What Is Your Level Of Caffeine Consumption? Occasional Information not available 07/04/2020 Which Illicit Or Recreational Drugs Have You Used? Marijuana Information not available 07/04/2020 What Was The Date Of Your Most Recent Tobacco Screening? 06/13/2025 [email or web address] Information not available 06/13/2025 Sex: Male Functional Status Question Answer Note LastModified by [employer] Details LastModified Time What is your level [...] mcg/0.3 mL dose 1 completed Deborah barroso [facility] 01/28/2021 11:58:53 Tdap 1 completed Olivia barroso [facility] 11/06/2021 14:20:16 Influenza, split virus, quadrivalent, preservative 1 completed Olivia barroso [facility] 11/06/2021 14:20:56 COVID-19, mRNA, LNP-S, PF, 30 mcg/0.3 mL dose 2 completed Olivia barroso [facility] 11/06/2021 14:21:29 Influenza, split virus, quadrivalent, preservative 0 completed Not Available [facility] 12/31/2020 09:11:01 COVID-19, mRNA, LNP-S, PF, 30 mcg/0.3 mL dose 1 completed Not Available [facility] 12/31/2020 09:11:01 Past Encounters Encounter ID Performer Location Encounter Start Date Encounter Closed Date Diagnosis/Indication Diagnosis SNOMED-CT Code Diagnosis ICD10 Code Diagnosis IMO Codes Diagnosis Note [id number] Alberto Polanco [facility] Internal Medicine [address] [facility],[place] [address] 03/20/2025 14:39:43 03/20/2025 15:20:07 Plantar fasciitis 752517922 M72.2 71061 recommende d podiatry apptwill send referral Health Concerns Section Related Observation LastModified by Organization Detvaleriano kat LastModified Time None Recorded Concern Status LastModified by Organization Details LastModified Time None Recorded Payers Encounter Date Sequence Insurance Name Policy Number Policy Martin Covered Member ID Martin Member ID Guarantor Name 03/20/2025 1 [facility] [id number] Vadim Reyes [id number] Vadim Reyes Notes Date Note Type Note Provider Name a nd Address Organization Details Recorded Time 03/20/2025 text/html ROS as noted in the HPI c/o L foot pain the patient has been having left foot painthe patient has a high arch and bone spur (calcaneal spur)diagnosed at also with plantar fascitis the patient tried new shoes, inserts and supportsright foot is fine will submit referral for patient JANICE CHINO [address] [place] [address], [place], [address], [facility] 03/20/2025 15:11:46
--- OUTSIDE RECORDS SUMMARY | 2025-06-13 12:51 | XMS_ITS | Encounter Summary ---
Author Organization [facility] Address [address] [facility] [address] [place] [address] Phone Care Team Providers Care Cyber Threat Analyst Name Role Phone Alberto Alford DO Primary Care Provider [phone] Alberto Alford DO Primary Care Provider [phone] Encounter Details Date Type Department Care Team (Late Contact Info) Description 06/04/2021 Procedure Pass [facility] Cardiovascular And Interventional Radiology [address] [place] [address] Social History Tobacco Use Types Packs/Day Years Used Date Smoking Tobacco: Former Cigarettes Smokeless Tobacco: Never Comments:few cigs socially Alcohol Use Standard Drinks/Week Comments Not Currently 0 (1 standard drink = 0.6 oz [...] Description 10/16/2025 1:00 PM EDT Office Visit [facility] [address] [place] [address] [address] Floor, [address] [place] [id number] Ever Coffey MD [address] [place] [address], [address] [phone] documented as of this encounter Visit Diagnoses Not on filedocumented in this encounter Care Teams Cyber Threat Analyst Relationship Specialty Start Date End Date Alberto Alford DO [email or web address] PCP - General Internal Medicine 03/06/20 02/02/25 Alberto Alford DO [address] [place] [address] PCP - General Internal Medicine 02/03/25 documented as of this encounter Additional Source Comments The information contained in this document represents components of the legal health record. It is not the complete legal health record.[facility]
--- OUTSIDE RECORDS SUMMARY | 2025-06-13 12:51 | XMS_ITS | Encounter Summary ---
Author Organization [facility] Address [address] [facility] [address] [place] [address] Phone Care Team Providers Care Telephonic Case Manager Name Role Phone Alberto Alford DO Primary Care Provider [phone] Alberto Alford DO Primary Care Provider [phone] Encounter Details Date Type Department Care Team (Late st Contact Info) Description 10/16/2021 Procedure Pass Echo Lab [address] [place], [place] [id number] Social History Tobacco Use Types Packs/Day Years [...] Description 10/16/2025 1:00 PM EDT Office Visit [facility] [address] [place] [address] 3rd Floor, [address] [place], [place] [phone] Ever Coffey MD [address] [place] [address], [address] [phone] [email or web address] documented as of this encounter Visit Diagnoses Not on filedocumented in this encounter Care Teams Telephonic Case Manager Relationship Specialty Start Date End Date Alberto Alford DO [email or web address] PCP - General Internal Medicine 03/06/20 02/02/25 Alberto Alford DO [address] [place] [address] PCP - General Internal Medicine 02/03/25 documented as of this encounter Additional Source Comments The information contained in this document represents components of the legal health record. It is not the complete legal health record.[facility]
--- OUTSIDE RECORDS SUMMARY | 2025-06-13 12:51 | XMS_ITS | Encounter Summary ---
Author Organization [facility] Address [address] [place] [address] Phone Care Team Providers Care Spectrographic Analyst Name Role Phone Alberto Alford DO Primary Care Provider [phone] RickeyAlberto [email or web address] DO Primary Care Provider [phone] Encounter Details Date Type Department Care Team (Late st Contact Info) Description 01/16/2023 Procedure Pass [facility] Admitting Dept Virtual Department [address] [place] [address] Social History Tobacco Use Types Packs/Day Years [...] Description 10/16/2025 1:00 PM EDT Office Visit [facility] [address] [place] [address] [address]rd Floor, [address] [place] [address] Ever Coffey MD [address] [facility], [address] [place] [address] [email or web address] documented as of this encounter Visit Diagnoses Not on filedocumented in this encounter Care Teams Spectrographic Analyst Relationship Specialty Start Date End Date Alberto Alford DO PCP - General Internal Medicine 03/06/20 02/02/25 Alberto Alford DO [address] [place] [address] [address] [place] [address] PCP - General Internal Medicine 02/03/25 documented as of this encounter Additional Source Comments The information contained in this document represents components of the legal health record. It is not the complete legal health record.[facility]
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
[2025-06-13 13:39] LABS: MANUAL DIFF FLAG NO
[2025-06-13 13:45] LABS: Hematocrit 41.7 % (42.0-52.0); Hemoglobin 14.0 g/dl (14.0-18.0); Imm Gran Abs Auto 0.07 X10*3/uL (0.00-0.03); Imm Gran Pct Auto 0.7 % (0.0-0.4); Lymphocytes Absolute Auto 0.8 X10*3/uL (1.2-4.9); Mean Corpuscular HGB Conc 33.6 g/dl (31.0-36.0); Mean Corpuscular Hemoglobin 32.3 pg (27.0-33.0); Mean Corpuscular Volume 96.1 fL (80.0-98.0); NRBC Abs Auto 0.000 X10*3/uL (0.0-0.012); NRBC Pct Auto 0.0 /100WBC (0.0-0.2); Platelet Count 223 X10*3/uL (160-400); Red Blood Count 4.34 X10*6/uL (4.60-5.80); White Blood Count 9.8 X10*3/uL (4.8-10.8)
[2025-06-13 14:47] LABS: Alanine Aminotransferase 35 U/L (0-40); Albumin Level 4.9 g/dL (3.5-5.0); Alkaline Phosphatase 56 U/L (39-117); Anion Gap 15 (12-20); Aspartate Amino Transferase 33 U/L (5-37); Blood Urea Nitrogen 17 mg/dL (9-16); Calcium 9.9 mg/dL (8.4-10.2); Carbon Dioxide 24 mmol/L (22-29); Chloride 104 mmol/L (96-108); Estimated Glomerular Filt Rate > 60; Potassium 4.1 mmol/L (3.3-5.1); Sodium 139 mmol/L (135-145); Total Protein 7.8 g/dL (6.5-8.0)
[2025-06-13 15:20] LABS: Prostate Specific Antigen 0.74 ng/mL (<0.05-4.0)
[2025-06-13 15:22] LABS: Folate 8.1 ng/mL (> or = 4.0); Vitamin B12 294 pg/mL (200-900)
== END 2025-06-13 10:18 | disposition home or self-care (01) ==
LOC: HO.MANLDS 10:17
PROVIDERS: Visit Provider Internal Medicine
DX: Z12.5 Encounter for screening for malignant neoplasm of prostate (principal); Z13.21 Encounter for screening for nutritional disorder; E78.5 Hyperlipidemia, unspecified
CPT/HCPCS: 36415; 80053; 82306; 82607; 82746; 84153; 84403; 85025